=== PATIENT | female | born 1985 | race Caucasian/White ===

== ENCOUNTER → 2018-10-26 | Outpatient (CLI) | payer BC ==
--- NOTE | 2018-11-01 13:08 | NM ---
EXAMINATION TYPE: NM thyroid image w uptake DATE OF EXAM: 10/27/2018 COMPARISON: Outside ultrasound 10/05/2018 HISTORY: 33-year-old female swelling, mass, neck lump. TECHNIQUE: Thyroid iodine uptake is calculated and images performed after the oral administration of 303 uCi 1-123 Capsule. FINDINGS: There are 2 dominant cold nodules, one at each lower pole. Relative decrease in overall background up take of the thyroid gland. There appears to be another smaller cold nodule laterally at the right mid pole, best seen on the YI projection. The 4 hour iodine uptake is calculated at 5.7% (normal range 8-14%). The 24-hour iodine uptake is calculated at 13.3% (normal range 15-35%). IMPRESSION: 1. Mildly decreased 4 and 24 hour iodine uptake values suggesting mild hypothyroidism. 2. Dominant cold nodules at the lower pole of each thyroid lobe. Biopsy can be performed. 3. Additional smaller cold nodule laterally at the right midpole. This can be correlated with size of nodule seen on outside ultrasound.
== END | disposition home or self-care (01) ==
LOC: RADNMMAIN 09:40
PROVIDERS: ATTEND Family Medicine
DX: E04.2 Nontoxic multinodular goiter (principal)
CPT/HCPCS: 78014; A9516

== ENCOUNTER 2018-12-01 09:18 | Day surgery (SDC) | payer BC ==
[2018-12-01] MEDS ORDERED: ALPRAZolam 0.5 MG TAB PO ONE (09:31)
[2018-12-01 09:37] VITALS: TEMP 98.2
--- NOTE | 2018-12-01 12:06 | US ---
EXAMINATION TYPE: US FNA thyroid each add lesion, US FNA thyroid first lesion DATE OF EXAM: 12/01/2018 COMPARISON: Nuclear medicine thyroid scan 10/26/2018 HISTORY: Thyroid nodule. Maximal barrier technique was utilized. After informed consent, skin overlying the lower pole right lobe thyroid calcified nodule was localized with ultrasound and the overlying skin prepped and draped . Ultrasound was utilized using sterile technique. Lidocaine was used for local anesthesia. Five pas ses with a 25-gauge needle were made into the nodule and aspirated specimen was submitted to cytology . Similarly the dominant nodule at the lower pole the left lobe of the gland was aspirated with hattie d cystic components. 5 passes with 25-gauge needle were made. Following the procedure hemostasis achi eved. No immediate complication. The patient discharged in stable condition. IMPRESSION: STATUS POST ULTRASOUND GUIDED FINE NEEDLE ASPIRATION OF THYROID NODULES, PATHOLOGY IS EPI GRAJEDA. THIS PROCEDURE WAS PERFORMED BY THE UNDERSIGNED.
[2018-12-01 12:10] VITALS: RESP 14
[2018-12-01 12:11] VITALS: BP 106/70; PULSE 66
== END 2018-12-01 11:40 | disposition home or self-care (01) ==
LOC: RADPROMAIN 09:18
PROVIDERS: ATTEND Surgery
DX: E04.2 Nontoxic multinodular goiter (principal)
CPT/HCPCS: 10005; 10006; 88173; 88305

== ENCOUNTER → 2019-12-27 | Outpatient (CLI) | payer BC ==
--- NOTE | 2019-12-27 14:54 | US ---
EXAMINATION TYPE: US thyroid st tissue head/neck DATE OF EXAM: 12/27/2019 COMPARISON: NONE CLINICAL HISTORY: E04.9 Thyroid goiter. Patient has had FNA here but outside imaging of thyroid. GLAND SIZE: Right Lobe: 5.5 x 1.7 x 2.1 cm Overall Parenchyma: heterogenous Left Lobe: 6.4 x 2.7 x 2.6 cm Overall Parenchyma: heterogeneous Isthmus Thickness: 0.6 cm NODULES RIGHT: # of nodules measured on right: 2 1. 1.7 X 1.5 x 1.2 cm mixed nodule at the mid pole with well-defined margins. This nodule is wider than tall and shows intranodular vascularity. Prior size: [facility] [employer] [employer] here 2. 1.5 X 1.3 x 1.1 cm solid nodule at the lower pole with well-defined margins; interrupted peripher al calcification. This nodule is taller than wide and shows intranodular vascularity. Prior size: [facility] [employer] here LEFT: # of nodules measured on left: 1 1. 2.7 X 2.5 x 2.7 cm mixed nodule at the mid pole with poorly defined margins. This nodule is wid er than tall and shows no intranodular vascularity. Prior size: [facility] [employer] here ISTHMUS: # of nodules measured in the isthmus: 0 Bilateral neck scanned, no evidence of lymphadenopathy. IMPRESSION: Heterogenous bilateral thyroid lobes. These 3 nodules greater than 1 cm in size present
== END | disposition home or self-care (01) ==
LOC: RADUSWWP 13:31
PROVIDERS: ATTEND Surgery
DX: E04.2 Nontoxic multinodular goiter (principal)
CPT/HCPCS: 76536

== ENCOUNTER → 2020-10-16 | Outpatient (CLI) | payer BC ==
--- NOTE | 2020-10-17 16:38 | NM ---
EXAMINATION TYPE: NM thyroid image w uptake DATE OF EXAM: 10/17/2020 COMPARISON: Prior exam 10/26/2018, ultrasound thyroid HISTORY: Multinodular goiter. TECHNIQUE: Thyroid iodine uptake is calculated and images performed after the oral administration of 296 uCi 1-123 Capsule. FINDINGS: There is stable distribution of activity throughout the gland. Decreased uptake noted the inferior pole the right lobe of the gland, inferior pole of the left lobe liver and mild decrease at the upper pole the left lobe of the gland, midpole the right lobe of the gland laterally. The 4 hour iodine uptake is calculated at 10.7 % (normal range 8-14%). The 24-hour iodine uptake is calculated at 23.3% (normal range 15-35%). IMPRESSION: Stable thyroid scan and improved uptake as compared to prior uptake. Cold nodules are dom inant at the lower pole the left lobe of the gland, right lobe of the gland.
== END | disposition home or self-care (01) ==
LOC: RADNMMAIN 08:29
PROVIDERS: ATTEND Family Medicine
DX: E04.2 Nontoxic multinodular goiter (principal)
CPT/HCPCS: 78014; A9516

== ENCOUNTER → 2021-08-06 | Outpatient (CLI) | payer BC ==
[2021-08-06 21:21] LABS: T4, Free (Free Thyroxine) 1.35 ng/dL (0.800-1.800)
== END | disposition home or self-care (01) ==
LOC: LABWHC1 12:41
PROVIDERS: ATTEND Internal Medicine Endocrinology, Diabetes & Metabolism
DX: E04.2 Nontoxic multinodular goiter (principal)
CPT/HCPCS: 36415; 84439; 84443

== ENCOUNTER → 2022-02-06 | Outpatient (CLI) | payer BC ==
[2022-02-06 23:14] LABS: T4, Free (Free Thyroxine) 1.19 ng/dL (0.800-1.800)
== END | disposition home or self-care (01) ==
LOC: LABWHC1 15:54
PROVIDERS: ATTEND Internal Medicine Endocrinology, Diabetes & Metabolism
DX: E04.2 Nontoxic multinodular goiter (principal)
CPT/HCPCS: 36415; 84439; 84443

== ENCOUNTER → 2022-02-09 | Outpatient (CLI) | payer BC ==
--- NOTE | 2022-02-09 19:37 | US ---
EXAMINATION TYPE: US thyroid st tissue head/neck DATE OF EXAM: 02/09/2022 COMPARISON: 12/27/2019 CLINICAL HISTORY: 36-year-old female E04.9 NONTOXIC GOITER. Hx of left thyroidectomy with cancer found on left. GLAND SIZE: Right Lobe: 6.1 x 2.9 x 2.4 cm Overall Parenchyma: heterogenous Left Lobe: Surgically absent NODULES RIGHT: # of nodules measured on right: 4 1. 1.7 X 1.4 x 1.3 cm, upper , mixed cystic and solid, TR 3 nodule, which is wider than tall, with smooth margins, without echogenic foci. Not measured previously 2. 1.2 x 1.2 x 1.5 cm, upper mid, mixed cystic and solid, primarily solid isoechoic . TR 3 nodule, which is wider than tall, without echogenic foci. Not measured previously 3. 1.4 X 1.2 x 1.5 cm, lower, mixed cystic and solid, isoechoic TR 3 nodule, which is wider than ta ll, with smooth margins, without echogenic foci. Prior size: 1.6 x 1.2 x 1.5 cm 4. 1.2 X 1.2 x 1.3 cm, lower solid or almost completely solid, hypoechoic TR 4 nodule, which is wid er than tall, with smooth margins, without echogenic foci. Prior size: 1.4 x 1.1 x 1.3 cm LEFT: # of nodules measured on left: 0 ISTHMUS: # of nodules measured in the isthmus: 0 Bilateral neck scanned, no evidence of lymphadenopathy. IMPRESSION: A number of TR3 nodules on the right measuring up to 1.7 cm. A 1.3 cm solid TR4 nodule also present o n the right. Continued follow-up can be performed. Status post left thyroidectomy.
== END | disposition home or self-care (01) ==
LOC: RADUSWWP 14:18
PROVIDERS: ATTEND Internal Medicine Endocrinology, Diabetes & Metabolism
DX: E04.9 Nontoxic goiter, unspecified (principal); E04.2 Nontoxic multinodular goiter
CPT/HCPCS: 76536

== ENCOUNTER → 2022-09-01 | Outpatient (CLI) | payer BC ==
[2022-09-01 20:15] LABS: T4, Free (Free Thyroxine) 1.87 ng/dL (0.800-1.800)
== END | disposition home or self-care (01) ==
LOC: LABWHC1 16:16
PROVIDERS: ATTEND Internal Medicine Endocrinology, Diabetes & Metabolism
DX: E04.2 Nontoxic multinodular goiter (principal)
CPT/HCPCS: 36415; 84439; 84443

== ENCOUNTER → 2022-09-08 | Outpatient (CLI) | payer BC | END | disposition home or self-care (01) | LOC: LABWHC1 11:25 | PROVIDERS: ATTEND Internal Medicine Endocrinology, Diabetes & Metabolism | DX: C73 Malignant neoplasm of thyroid gland (principal) | CPT/HCPCS: 36415; 84432; 84443; 86800 ==

== ENCOUNTER → 2022-10-14 | Outpatient (CLI) | payer BC | END | disposition home or self-care (01) | LOC: LABWHC1 13:45 | PROVIDERS: ATTEND Internal Medicine Endocrinology, Diabetes & Metabolism | DX: C73 Malignant neoplasm of thyroid gland (principal) | CPT/HCPCS: 36415; 84432; 84443; 86800 ==

== ENCOUNTER → 2023-04-28 | Outpatient (CLI) | payer BC | END | disposition home or self-care (01) | LOC: LABWHC1 16:00 | PROVIDERS: ATTEND Internal Medicine Endocrinology, Diabetes & Metabolism | DX: C73 Malignant neoplasm of thyroid gland (principal) | CPT/HCPCS: 36415; 84432; 84443; 86800 ==

== ENCOUNTER → 2023-10-28 | Outpatient (CLI) | payer BC ==
--- NOTE | 2023-10-28 17:05 | US ---
EXAMINATION TYPE: US thyroid st tissue head/neck DATE OF EXAM: 10/28/2023 COMPARISON: US 2021 CLINICAL INDICATION: Female, 38 years old with history of C73 MALIGNANT NEOPLASM OF THYROID GLAND; Hi story of thyroidectomy RIGHT: surgically absent LEFT: surgically absent ISTHMUS: surgically absent Bilateral neck scanned, no evidence of lymphadenopathy. IMPRESSION: No suspicious residual or recurrent thyroid tissue.
== END | disposition home or self-care (01) ==
LOC: RADCTMAIN 15:57
PROVIDERS: ATTEND Internal Medicine Endocrinology, Diabetes & Metabolism
DX: E04.2 Nontoxic multinodular goiter (principal); C73 Malignant neoplasm of thyroid gland
CPT/HCPCS: 76536; 70492; Q9967

== ENCOUNTER → 2023-11-01 | Outpatient (CLI) | payer BC | END | disposition home or self-care (01) | LOC: LABWHC1 10:37 | PROVIDERS: ATTEND Internal Medicine Endocrinology, Diabetes & Metabolism | DX: C73 Malignant neoplasm of thyroid gland (principal) | CPT/HCPCS: 36415; 84443 ==

== ENCOUNTER → 2024-05-08 | Outpatient (CLI) | payer BC | END | disposition home or self-care (01) | LOC: LABWHC1 16:09 | PROVIDERS: ATTEND Internal Medicine Endocrinology, Diabetes & Metabolism | DX: C73 Malignant neoplasm of thyroid gland (principal) | CPT/HCPCS: 36415; 84432; 84443; 86800 ==

== ENCOUNTER → 2024-06-22 | Outpatient (CLI) | payer BC | END | disposition home or self-care (01) | LOC: LABWHC1 16:20 | PROVIDERS: ATTEND Internal Medicine Endocrinology, Diabetes & Metabolism | DX: C73 Malignant neoplasm of thyroid gland (principal) | CPT/HCPCS: 36415; 84432; 84443; 86800 ==